=== PATIENT | female | born 1945 | race Hispanic/Latino ===

== ENCOUNTER 2024-05-04 15:01 | Outpatient (CLI) | payer MEDICARE | END 2024-05-04 15:02 | disposition home or self-care (01) | LOC: CT 15:01 | PROVIDERS: ATTEND Orthopaedic Surgery | DX: M17.11 Unilateral primary osteoarthritis, right knee (principal) ==

== ENCOUNTER 2024-05-10 07:55 | Inpatient (IN) | payer MEDICARE ==
[2024-04-25 12:46] VITALS: BMI 20.5
[2024-05-10] MEDS ORDERED: Midazolam HCl 2 mg/2 ml Vial ONE (08:36)
[2024-05-10] MEDS ORDERED: fentaNYL 50 mcg/mL 1 mL Vial ONE ×3 (08:36→13:43)
[2024-05-10] MEDS ORDERED: Bupivacaine PF 0.5% 30 ML VIAL ONE (08:37)
[2024-05-10] MEDS ORDERED: Tranexamic Acid 1,000 MG/10 ML VIAL ONE (08:51)
[2024-05-10] MEDS ORDERED: Vancomycin 1 GM/200 ML (FROZEN) BAG ONE (08:51)
[2024-05-10 08:58] LABS: #Basophils 0.05 10x3/uL (0.0-0.2); %Basophils 0.9 % (0.0-1.0); %Eosinophils 1.4 % (0.0-10.0); %Lymphocytes 30.1 % (21.0-51.0); %Neutrophils 60.4 % (42.0-75.0); Hematocrit 40.4 % (36.0-47.0); Hemoglobin 13.3 g/dL (12.0-16.0); Mean Corpuscular HGB CONC 32.9 g/dL (32.0-36.0); Mean Corpuscular Hemoglobin 30.3 pg (27.0-31.0); Mean Platelet Volume 9.3 fL (7.4-10.4); Platelet Count 257 10x3/uL (130-400); RBC Distribution Width 12.9 % (11.5-14.5); Red Blood Cell (RBC) Count 4.39 mill/uL (4.20-5.40)
[2024-05-10] MEDS ORDERED: PROPOFOL 20 ML ONE (09:12)
[2024-05-10] MEDS ORDERED: Lidocaine 1% PF 5 ML VIAL ONE (09:14)
[2024-05-10] MEDS ORDERED: Ondansetron PF 4 MG/2 ML Vial ONE (09:15)
[2024-05-10 09:17] LABS: Prothrombin Time 13.4 sec (12.0-14.7)
[2024-05-10 09:19] LABS: Anion Gap 13 mmol/L (10-20); BUN (Urea Nitrogen) 16 mg/dL (9.8-20.1); Calc. Creatinine Clearance 46 mL/min (70-130); Calcium 9.5 mg/dL (7.8-10.44); Carbon Dioxide 25 mmol/L (23-31); Chloride 106 mmol/L (98-107); Estimated GFR 69; Glucose 96 mg/dL (83-110); Potassium 4.7 mmol/L (3.5-5.1); Sodium 139 mmol/L (136-145)
[2024-05-10] MEDS ORDERED: Bupivacaine 0.25% HCL 30 ML VIAL ONE (09:50)
[2024-05-10] MEDS ORDERED: EPINEPHrine 1 MG/ML VIAL ONE (09:50)
[2024-05-10] MEDS ORDERED: Ondansetron PF 4 MG/2 ML Vial IVP PRN (10:00)
[2024-05-10] MEDS ORDERED: Ropivacaine 0.2% 550 ML 550 ML NERVE BLCK SCH (10:00)
[2024-05-10] MEDS ORDERED: Promethazine HCl 25 MG/ML VIAL IM PRN ×2 (10:00→10:55)
[2024-05-10] MEDS ORDERED: fentaNYL 50 mcg/mL 1 mL Vial SLOW IVP PRN (10:00)
[2024-05-10] MEDS ORDERED: Zolpidem Tartrate 5 MG TAB PO PRN ×2 (10:00→12:57)
[2024-05-10] MEDS ORDERED: CEFAZOLIN 2 GM VIAL ONE (10:08)
[2024-05-10] MEDS ORDERED: Dexamethasone 20 MG/5 ML VIAL ONE (10:39)
[2024-05-10] MEDS ORDERED: Ondansetron HCl/PF 4 MG/2 ML Vial IVP PRN (10:55)
[2024-05-10] MEDS ORDERED: fentaNYL PF 100 MCG/2 ML SYRINGE ONE (12:42)
[2024-05-10] MEDS ORDERED: Acetaminophen 325 MG TAB PO PRN (12:57)
[2024-05-10] MEDS ORDERED: diphenhydrAMINE 25 MG CAP PO PRN (12:57)
[2024-05-10] MEDS ORDERED: Ketorolac Tromethamine 30 MG (1 mL) VIAL ONE (13:51)
[2024-05-10] MEDS: Ketorolac Tromethamine 30 MG (1 mL) VIAL IVP SCH (13:52)
[2024-05-10] MEDS: Sodium Chloride 0.9% 1,000 ML IV SCH (13:53)
[2024-05-10] MEDS: CEFAZOLIN 2 GM in Sodium Chloride 0.9% 100 ML IVPB SCH (18:08)
[2024-05-10] MEDS: Aspirin 81 mg Enteric Coated Tablet PO SCH (21:05)
[2024-05-11] MEDS: HYDROcodone/Acetaminophen 10/325 mg Tablet PO PRN (00:52)
[2024-05-11 04:55] LABS: Hematocrit 31.3 % (36.0-47.0); Hemoglobin 10.5 g/dL (12.0-16.0); Mean Corpuscular HGB CONC 33.5 g/dL (32.0-36.0); Mean Corpuscular Hemoglobin 30.4 pg (27.0-31.0); Mean Corpuscular Volume 90.7 fL (78.0-98.0); Mean Platelet Volume 9.5 fL (7.4-10.4); Platelet Count 215 10x3/uL (130-400); RBC Distribution Width 12.9 % (11.5-14.5); Red Blood Cell (RBC) Count 3.45 mill/uL (4.20-5.40)
[2024-05-11] MEDS: Senokot S 8.6-50 MG TAB PO SCH (09:48)
[2024-05-11] MEDS: Multivitamin W/ Minerals 1 TAB PO SCH (09:48)
[2024-05-11] MEDS: Ferrous Gluconate 324 MG TAB PO SCH (09:48)
[2024-05-12 06:20] LABS: Hematocrit 28.9 % (36.0-47.0); Hemoglobin 9.5 g/dL (12.0-16.0); Mean Corpuscular HGB CONC 32.9 g/dL (32.0-36.0); Mean Corpuscular Volume 91.2 fL (78.0-98.0); Mean Platelet Volume 9.7 fL (7.4-10.4); Platelet Count 202 10x3/uL (130-400); RBC Distribution Width 13.3 % (11.5-14.5); Red Blood Cell (RBC) Count 3.17 mill/uL (4.20-5.40)
[2024-05-12] MEDS: FLU (Fluad Triv) TS24-25 (65UP)/MF59C/PF 45 MCG/0.5 ML Syringe IM ONE (07:55)
[2024-05-12 11:50] VITALS: BP 120/64; TEMP 97.3
[2024-05-12] MEDS: HYDROcodone/Acetaminophen 10/325 mg Tablet PO PRN (13:46)
== END 2024-05-12 13:55 | disposition home or self-care (01) | DRG 470 ==
LOC: SDC 07:55 → SURG A 17:28 → OBSVTOIN 05-11 12:26
PROVIDERS: ADMIT Orthopaedic Surgery; ATTEND Orthopaedic Surgery
PROC: 0SRC0J9 Replacement of Right Knee Joint with Synthetic Substitute, Cemented, Open Approach (ICD-10-PCS; principal; 2024-05-10)
PROC: 3E033XZ Introduction of Vasopressor into Peripheral Vein, Percutaneous Approach (ICD-10-PCS; 2024-05-10)
DX: M17.11 Unilateral primary osteoarthritis, right knee (principal); I10 Essential (primary) hypertension; Z79.899 Other long term (current) drug therapy; Z88.8 Allergy status to other drugs, medicaments and biological substances
CPT/HCPCS: 36415; 80048; 85025; 85027; 85610; 90653; 93005; 93010; A4306; C1713; C1776; C1889; J0171; J0665; J1100; J1885; J2250; J2405; J2704; J2795; J3010; J3370-JW; J7030